=== PATIENT | male | born 1985 | race Caucasian/White ===

== ENCOUNTER 2017-08-16 17:04 | Emergency (ER) | payer BC, OTHER ==
[2017-08-16 17:37] VITALS: BP 151/102
--- NOTE | 2017-08-16 19:28 | UC ---
UC General HPI - HPI Summary HPI Summary: pt c/o pain to the L side of his neck for about 2 weeks. he roused with it. sometimes it radiates to his L shoulder area. 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 no numb/tingle/weakness L arm. no cp or sob. - History of Current Complaint Chief Complaint: UCGeneralIllness Stated Complaint: NECK/SHOULDER PAIN Time Seen by Provider: 08/16/17 19:05 Hx Obtained From: Patient Timing: Constant Pain Intensity: 2 Aggravating: movement Alleviating: nothing - Allergy/Home Medications Allergies/Adverse Reactions: Allergies Allergy/AdvReac Type Severity Reaction Status Date / Time BEE STINGS Allergy Severe HIVES, Uncoded 08/16/17 17:27 THROAT SWELLING PMH/Surg Hx/FS Hx/Imm Hx Previously Healthy: Yes - Surgical History Surgical History: Yes Surgery Procedure, Year, and Place: tonsilectomy with lymph nodes removed - Family History Known Family History: Positive: Hypertension - Social History Occupation: Employed Full-time Lives: With Family Alcohol Use: Daily Alcohol Amount: 4-5 drinks/day Substance Use Type: None Smoking Status (MU): Current Some Day Smoker Type: Cigarettes Amount Used/How Often: 1 pack every 2 weeks - Immunization History Most Recent Tetanus Shot: within 10 yrs Vaccination Up to Date: Yes Review of Systems Constitutional: Negative Skin: Negative Eyes: Negative ENT: Negative Respiratory: Negative Cardiovascular: Negative Gastrointestinal: Negative Genitourinary: Negative Motor: Negative Neurovascular: Negative Musculoskeletal: Other: - pain L side of neck Neurological: Negative Psychological: Negative Is Patient Immunocompromised?: No All Other Systems Reviewed And Are Negative: Yes Physical Exam Triage Information Reviewed: Yes Appearance: Well-Appearing Vital Signs: Initial Vital Signs Temp 98.2 F 08/16/17 17:27 Pulse 87 08/16/17 17:27 Resp 16 08/16/17 17:27 BP 151/102 08/16/17 17:27 Pulse Ox 98 08/16/17 17:27 Vital Signs Reviewed: Yes ENT: Positive: Normal ENT inspection Neck: Positive: Supple, No Lymphadenopathy, Other: - L trapezius mm spasm and tenderness. Negative: Nuchal Rigidity Respiratory: Positive: Lungs clear, Normal breath sounds Cardiovascular: Positive: RRR, No Murmur, Pulses Normal Abdominal Exam: Normal Bowel Sounds: Positive: Present Musculoskeletal: Positive: Other: - 5/5 strength x4, 2+ reflexes x4.. no spinal deformity or tenderness and rom is intact. Neurological: Positive: Alert Psychological: Positive: Age Appropriate Behavior Skin Exam: Normal Course/Dx - Course Course Of Treatment: exam c/w L trapezius mm spasm. will tx nsaid and mm relaxor. PT referal given. - Differential Dx - Multi-Symptom Provider Diagnoses: L trapezius muscle spasm Discharge - Discharge Plan Condition: Stable Disposition: HOME Prescriptions: Cyclobenzaprine TAB* [Flexeril 10 MG TAB*] 10 mg PO TID #10 tab Naproxen [Naprosyn] 500 mg PO BID #15 tablet Patient Education Materials: Muscle Spasm (ED) Referrals: No Primary Care Phys,NOPCP [Primary Care Provider] - [facility] [place] [facility] REFERRAL [Outside] - 5 Days
== END 2017-08-16 19:42 | disposition home or self-care (01) ==
LOC: UCCORT 17:04
DX: M62.838 Other muscle spasm (principal)
CPT/HCPCS: 99212; G0463

== ENCOUNTER 2017-08-21 14:14 | Emergency (ER) | payer BC ==
[2017-08-21 14:37] VITALS: BP 141/97
--- NOTE | 2017-08-21 15:16 | UC ---
Throat Pain/Nasal [place] HPI - HPI Summary HPI Summary: C/O sore throat x 4 days with congestion sneezing. Cough without SOB. Sinus pain. - History of Current Complaint Chief Complaint: UCGeneralIllness Stated Complaint: SORE THROAT Time Seen by Provider: 08/21/17 15:07 Hx Obtained From: Patient Onset/Duration: Sudden Onset, Lasting Days - 4, Still Present Severity: Moderate Pain Intensity: 6 Cough: Productive Associated Signs & Symptoms: Positive: Hoarseness, Sinus Discomfort. Negative: Wheezing Related History: Seasonal Allergies - Allergies/Home Medications Allergies/Adverse Reactions: Allergies Allergy/AdvReac Type Severity Reaction Status Date / Time BEE STINGS Allergy Severe HIVES, Uncoded 08/21/17 14:31 THROAT SWELLING Home Medications: Home Medications Chlorphen/Phenyleph/Dm/Aspirin [Autumn-[place] Plus C-C Tab Eff] 08/21/17 [ History] PMH/Surg Hx/FS Hx/Imm Hx Previously Healthy: Yes - Surgical History Surgical History: Yes Surgery Procedure, Year, and Place: tonsilectomy with lymph nodes removed - Family History Known Family History: Positive: Hypertension, Diabetes Negative: Cardiac Disease - Social History Occupation: Employed Full-time Lives: With Family Alcohol Use: Daily Alcohol Amount: 4-5 drinks/day Substance Use Type: None Smoking Status (MU): Current Some Day Smoker Type: Cigarettes Amount Used/How Often: 1 pack every 2 weeks Have You Smoked in the Last Year: Yes Cessation Counseling: Patient Advised to Stop - Immunization History Most Recent Tetanus Shot: within 10 yrs Vaccination Up to Date: Yes Review of Systems Constitutional: Fever ENT: Sore Throat, Ear Ache, Nasal Discharge, Sinus Congestion Respiratory: Cough Is Patient Immunocompromised?: No All Other Systems Reviewed And Are Negative: Yes Physical Exam Triage Information Reviewed: Yes Appearance: No Pain Distress, Well-Nourished, Ill-Appearing Vital Signs: Initial Vital Signs Temp 101.0 F 08/21/17 14:32 Pulse 97 08/21/17 14:32 Resp 20 08/21/17 14:32 BP 141/97 08/21/17 14:32 Pulse Ox 98 08/21/17 14:32 Vital Signs Reviewed: Yes Eyes: Positive: Conjunctiva Clear ENT: Positive: Nasal congestion, Nasal drainage, TMs normal, Hoarse voice Neck exam: Normal Respiratory: Positive: Lungs clear, Wheezing - expiratory wheeze with coughing Cardiovascular Exam: Normal Musculoskeletal Exam: Normal Neurological Exam: Normal Psychological Exam: Normal Skin Exam: Normal Throat Pain/Nasal Course/Dx - Differential Dx/Diagnosis Differential Diagnosis/HQI/PQRI: Laryngitis, Sinusitis, URI Provider Diagnoses: Acute URI. Acute sinusitis. Acute bronchospasm Discharge - Discharge Plan Condition: Stable Disposition: HOME Prescriptions: predniSONE TAB* [Deltasone TAB*] 20 mg PO DAILY #18 tab Sulfamethox/Trimethoprim DS* [Bactrim DS 800/160 TAB*] 1 tab PO BID #20 tab Patient Education Materials: Upper Respiratory Infection (DC), Wheezing (ED), Prednisone (By mouth), Sinusitis (ED), Sulfamethoxazole/Trimethoprim (By mouth) Referrals: No Primary Care Phys,NOPCP [Primary Care Provider] - Additional Instructions: NASAL SPRAYS AND DROPS: Afrin in the PUMP/ MIST bottle (Get generic 12 hours nasal decongestant spray). Tilt your head down and look at the floor while doing a strong sniff with the spray. Decongestant nasal sprays and drops often give dramatic relief from congestion. They are often recommended for patients with sinus infection to assist with sinus drainage. Persons with high blood pressure should consult the doctor before using these nasal sprays. Afrin and Ritesh-Synephrine are common [id number] preparations. They should not be used for more than five days, as "rebound" congestion can occur - - the congestion flares as the drug wears off. A way of dealing with this rebound congestion problem is to medicate only one nostril each time, allowing the other nostril to recover from the medicine' s effects. When you no longer need the drug during the day, spray only one nostril each night. This helps you sleep well without severe rebound congestion. Call the doctor if you develop severe headache, palpitations, or chest pain.
== END 2017-08-21 15:35 | disposition home or self-care (01) ==
LOC: UCCORT 14:14
DX: J06.9 Acute upper respiratory infection, unspecified (principal); J01.90 Acute sinusitis, unspecified; J98.01 Acute bronchospasm; F17.210 Nicotine dependence, cigarettes, uncomplicated
CPT/HCPCS: 99212; G0463